=== PATIENT | male | born 1990 | race Caucasian/White ===

== ENCOUNTER → 2022-01-21 16:22 | Outpatient (BNVA) | payer BC, SELFPAY | PROVIDERS: Family Provider Nurse Practitioner; PCP Nurse Practitioner Family; Visit Provider Nurse Practitioner | DX: H93.90 Unspecified disorder of ear, unspecified ear (principal); B34.9 Viral infection, unspecified; H65.93 Unspecified nonsuppurative otitis media, bilateral | CPT/HCPCS: 87400 ==

== ENCOUNTER → 2022-02-05 16:43 | Outpatient (BNVA) | payer BC, SELFPAY | PROVIDERS: Family Provider Nurse Practitioner; PCP Nurse Practitioner Family; Visit Provider Nurse Practitioner Family | DX: E03.9 Hypothyroidism, unspecified (principal); Z51.81 Encounter for therapeutic drug level monitoring; F17.220 Nicotine dependence, chewing tobacco, uncomplicated | CPT/HCPCS: 80053; 84443; 85025 ==

== ENCOUNTER → 2022-07-14 15:07 | Outpatient (BNVA) | payer BC, SELFPAY | PROVIDERS: Family Provider Nurse Practitioner; PCP Nurse Practitioner Family; Visit Provider Nurse Practitioner | DX: J02.9 Acute pharyngitis, unspecified (principal); J01.90 Acute sinusitis, unspecified; B96.89 Other specified bacterial agents as the cause of diseases classified elsewhere | CPT/HCPCS: 87880 ==

== ENCOUNTER → 2023-02-17 13:53 | Outpatient (BNVA) | payer OTHER, SELFPAY | PROVIDERS: Family Provider Nurse Practitioner; PCP Nurse Practitioner Family; Visit Provider Nurse Practitioner Family | DX: J06.9 Acute upper respiratory infection, unspecified (principal); E03.9 Hypothyroidism, unspecified; Z79.899 Other long term (current) drug therapy; Z13.6 Encounter for screening for cardiovascular disorders; J01.40 Acute pansinusitis, unspecified; Z01.89 Encounter for other specified special examinations | CPT/HCPCS: 80053; 80061; 81003; 83036; 84443; 85025 ==